=== PATIENT | female | born 1970 | race American Indian/Alaskan Native ===

== ENCOUNTER 2018-01-09 03:41 | Emergency (ER) | payer OTHER ==
[2018-01-09] MEDS ORDERED: NACL 0.9% 1000 ML IV ONE (04:06)
[2018-01-09] MEDS ORDERED: VANCOMYCIN 2,000 MG in NACL 0.9% 500 ML 500 ML IV ONE (04:06)
[2018-01-09] MEDS ORDERED: TYLENOL PO ONE (04:08)
[2018-01-09] MEDS ORDERED: SUBLIMAZE IV ONE (04:08)
--- NOTE | 2018-01-09 04:09 | Emergency Department Report ---
ED General Adult HPI - General Chief complaint: Fever Stated complaint: SOB/FEVER Time Seen by Provider: 01/09/18 04:00 Source: patient, EMS (ems notes not available at time of chart dictation), RN notes reviewed Mode of arrival: Stretcher Limitations: No Limitations - History of Present Illness Initial comments: This is a 47-year-old female who is not known to this provider previously, had a laparoscopic sleeve gastrectomy performed on December 28 at [facility], and [place], by Dr. Abner Quan. Patient presents to the ER with a complaint of fevers, abdominal pain, malaise, fatigue. Her symptoms have been intermittent over the past week, they're getting worse, they do not have any relieving factors. -: Gradual Location: abdomen Severity scale (0 -10): 8 Quality: aching Consistency: constant Improves with: other Worsens with: other Associated Symptoms: fever/chills, loss of appetite, malaise, rash, weakness. denies: confusion, chest pain, cough, diaphoresis, headaches, nausea/vomiting, seizure, shortness of breath, syncope - Related Data Allergies Allergy/AdvReac Type Severity Reaction Status Date / Time Sulfa (Sulfonamide Allergy Hives Verified 01/09/18 03:59 Antibiotics) ED Review of Systems ROS: Stated complaint: SOB/FEVER Other details as noted in HPI Comment: All other systems reviewed and negative ED Past Medical Hx - Past Medical History Previous Medical History?: Yes Hx Hypertension: Yes Additional medical history: Anxiety, Depression, Deteriorating Disk Disease, Overactive Bladder - Surgical History Past Surgical History?: Yes Hx Cholecystectomy: Yes Hx Appendectomy: Yes Additional Surgical History: Laparascopic Gastrectomy Sleeve - Social History Smoking Status: Former Smoker Substance Use Type: Prescribed ED Physical Exam - General Limitations: No Limitations General appearance: alert, in no apparent distress - Head Head exam: Present: atraumatic, normocephalic - Eye Eye exam: Present: normal appearance, EOMI. Absent: nystagmus - ENT ENT exam: Present: normal orophraynx, mucous membranes moist, normal external ear exam - Neck Neck exam: Present: normal inspection, full ROM - Respiratory Respiratory exam: Present: normal lung sounds bilaterally. Absent: respiratory distress - Cardiovascular Cardiovascular Exam: Present: normal rhythm, tachycardia, normal heart sounds. Absent: systolic murmur, diastolic murmur, rubs, gallop - GI/Abdominal GI/Abdominal exam: Present: soft, tenderness, other (there is anterior abdominal wall erythema, most prominent in the left flank,/left lower quadrant. Surgical site appears to be red and tender.). Absent: distended, guarding, rebound, rigid - Extremities Exam Extremities exam: Present: normal inspection, full ROM, normal capillary refill , other (2+ pulses noted in the bilateral upper, lower extremities. Compartments soft. No long bony tenderness. The pelvis is stable.). Absent: tenderness, pedal edema, joint swelling, calf tenderness - Back Exam Back exam: Present: normal inspection, full ROM. Absent: tenderness, CVA tenderness (R), paraspinal tenderness, vertebral tenderness - Neurological Exam Neurological exam: Present: alert, oriented X3, CN II-XII intact, other ( Extraocular movements intact. Tongue midline. No facial droop. Facial sensation intact to light touch in the V1, V2, V3 distribution bilaterally. 5 and 5 strength in 4 extremities.. Sensation is intact to light touch in 4 extremities.). Absent: motor sensory deficit - Psychiatric Psychiatric exam: Present: anxious - Skin Skin exam: Present: warm, rash, erythema ED Course Vital Signs 01/09/18 03:44 Temperature 102.9 F H Pulse Rate 109 H Respiratory 18 Rate Blood Pressure 133/68 O2 Sat by Pulse 97 Oximetry - Reevaluation(s) Reevaluation #1: 01/09/18 05:10 Differential diagnosis, including but not limited to: Intra-abdominal infection , urinary tract infection, pneumonia, postoperative sepsis Assessment and plan: 47-year-old female who presents 12 days after laparoscopic sleeve gastrectomy with probable abdominal infection/systemic inflammatory response syndrome criteria. She will be treated and resuscitated according to the sepsis pathway, with appropriate antibiotic therapy, fluid resuscitation, blood cultures, lactic acid. The patient's bariatric surgeon does not have privileges at this hospital. Therefore, given that she is most likely experiencing a complication of her recent surgery, it is in the patient's best interest to be transferred back to the hospital where her surgeon has privileges and works. The case was presented to the covering surgeon, Dr. Campbell , who accepted the patient as an ER to ER transfer, he will consult, and most likely admit the patient. Patient is going to be transferred back to [facility] in [place]. The case was also discussed with the attending ER physician on staff, Dr. Donahue, who was in agreement with this plan. This was also relayed and discussed with the patient. ED Medical Decision Making - Lab Data Vital Signs 01/09/18 03:44 Temperature 102.9 F H Pulse Rate 109 H Respiratory 18 Rate Blood Pressure 133/68 O2 Sat by Pulse 97 Oximetry - Radiology Data Radiology results: report reviewed, image reviewed X-ray of the chest is negative for acute disease Critical care attestation.: If time is entered above; I have spent that time in minutes in the direct care of this critically ill patient, excluding procedure time. ED Disposition Clinical Impression: Postoperative sepsis Qualifiers: Encounter type: initial encounter Qualified Code(s): T81.4XXA - Infection following a procedure, initial encounter Disposition: [facility] IP Is pt being admited?: No Does the pt Need Aspirin: No Condition: Good
--- NOTE | 2018-01-09 04:52 | XRay Report ---
FINAL REPORT PROCEDURE: XR CHEST 1V AP TECHNIQUE: Chest radiograph anteroposterior view. CPT 00043 HISTORY: sepsis COMPARISON: No prior studies are available for comparison. FINDINGS: Heart: Normal. Mediastinum/Vessels: Normal. Lungs/Pleural space: Normal. Bony thorax: No acute osseous abnormality. Life support devices: None. IMPRESSION: No acute cardiopulmonary abnormality.
[2018-01-09] MEDS ORDERED: NACL 0.9% 50 ML ONE (05:06)
[2018-01-09 05:10] LABS: Basophils % (Auto) 0.1 % (0.0-1.8); Hematocrit 30.4 % (30.3-42.9); Lymphocytes # (Auto) 1.2 K/mm3 (1.2-5.4); Lymphocytes % (Auto) 7.1 % (13.4-35.0); Mean Corpuscular HGB Conc 33 % (30-34); Mean Corpuscular Hemoglobin 29 pg (28-32); Mean Corpuscular Volume 88 fl (79-97); Monocytes # (Auto) 1.1 K/mm3 (0.0-0.8); Monocytes % (Auto) 6.9 % (0.0-7.3); Platelet Count 393 K/mm3 (140-440); Red Blood Count 3.44 M/mm3 (3.65-5.03)
[2018-01-09 05:31] LABS: Alanine Aminotransferase 76 units/L (7-56); Albumin 2.7 g/dL (3.9-5); BUN/Creatinine Ratio 16; Blood Urea Nitrogen 13 mg/dL (7-17); Calcium 7.6 mg/dL (8.4-10.2); Hemolysis Index 23
[2018-01-09] MEDS ORDERED: ZOSYN/NS 4.5GM/100ML 4.5 GM/100 ML VIAL IV SCH (06:00)
[2018-01-09 06:34] VITALS: BP 101/55
--- NOTE | 2018-01-09 06:35 | Cat Scan Report ---
FINAL REPORT PROCEDURE: CT ABDOMEN PELVIS W CON TECHNIQUE: Computerized axial tomography of the abdomen and pelvis was performed after the IV injection of iodinated nonionic contrast. HISTORY: abd pain sepsis COMPARISON: No prior studies are available for comparison. FINDINGS: Visualized lower thorax: Mild atelectasis both lower lungs. Liver: Normal size and attenuation. Spleen: Normal size and attenuation. Gallbladder and biliary system: The gallbladder is absent. No dilatation of the biliary ductal system. Pancreas: Normal. Adrenals: Normal. Kidneys: Normal. GI tract: The stomach is normal. The small bowel has a normal caliber. No obstruction is seen. The cecum, appendix and colon are normal.. Lymph nodes and mesentery: Normal. Vasculature: Normal. Bladder: Normal. Reproductive organs: Normal. Peritoneum: Moderate ascites is identified. There is significant subcutaneous soft tissue induration and, minimal air in the anterior abdominal wall soft tissues is identified. This may be related to recent procedure performed in these regions.. Musculoskeletal structures: Mild degenerative changes of the osseous structures.. Other: None. IMPRESSION: No evidence of intestinal urinary tract obstruction. No ileus or enteritis. Moderate ascites is identified.
[2018-01-09] MEDS ORDERED: KCL 10MEQ/100ML 10 MEQ/100 ML BAG IV SCH (07:00)
== END 2018-01-09 07:53 | disposition short-term general hospital (02) ==
LOC: EDSEX → ED 03:41
DX: T81.4XXA Infection following a procedure, initial encounter (principal); I10 Essential (primary) hypertension; F41.9 Anxiety disorder, unspecified; F32.9 Major depressive disorder, single episode, unspecified; Z87.891 Personal history of nicotine dependence; Z88.2 Allergy status to sulfonamides
CPT/HCPCS: 36415; 71045; 74177; 80053; 82140; 82550; 85025; 85730; 86850; 86900; 86901; 87040; 96365; 96366; 96368; 96375; 99285; J2543; J3010; J3370; J7030; J7040; Q9967